=== PATIENT | female | born 1960 | race Caucasian/White ===

== ENCOUNTER 2017-12-05 08:01 | Inpatient (IN) | payer BC ==
[~2017-12-05 08:01] MED LIST: Buffered Lidocaine 0.9% SYRIN* 5 ML/SYR SYRINGE INTRADERM ONE; Dexamethasone IV* 4 MG/ML 1 ML (4 MG) IV SLOW PU ONE; Famotidine IV* 10 MG/ML 2 ML (20 mg) IV ONE; Scopolamine 1.5 mg* PATCH TRANSDERM ONE
[2017-12-05] MEDS ORDERED: Dexamethasone IV* 4 MG/ML 1 ML (4 MG) ONE (08:08)
[2017-12-05] MEDS ORDERED: Famotidine IV* 10 MG/ML 2 ML (20 mg) ONE (08:08)
[2017-12-05] MEDS ORDERED: Buffered Lidocaine 0.9% SYRIN* 5 ML/SYR SYRINGE ONE (08:09)
[2017-12-05] MEDS ORDERED: Scopolamine 1.5 mg* PATCH ONE (08:09)
[2017-12-05] MEDS ORDERED: ceFAZolin 1 GM in Dextrose (*) 1 GM/50 ML BAG IVPB ONE (08:10)
[2017-12-05] MEDS ORDERED: Clindamycin 900 MG IVPREMIX(* 900 MG/50 ML SDV IV ONE (08:10)
[2017-12-05] MEDS ORDERED: ceFAZolin 2 GM PREMIX (*) 2 GM/50 ML BAG IVPB ONE (08:10)
[2017-12-05] MEDS ORDERED: Heparin VIAL(*) 5000 UNITS/ML VIAL (FIVE THOUSAND) ONE (08:12)
[2017-12-05] MEDS ORDERED: Insulin LISPRO* 1 UNITS UNIT SUBCUT ONE ×2 (08:40→11:13)
[2017-12-05] MEDS ORDERED: Bupivacaine 0.25% SDV* 30 ML ONE (09:44)
[2017-12-05] MEDS ORDERED: Naloxone* 0.4 MG/ML 1 ML VIAL IV PRN (09:54)
[2017-12-05] MEDS ORDERED: PROCHLORPERAZINE INJ 5 MG/ML 2 ML VIAL IV PRN (09:54)
[2017-12-05] MEDS ORDERED: fentaNYL* 50 MCG/ML 2 ML VIAL (100 MCG VIAL) IV PRN (09:54)
[2017-12-05] MEDS ORDERED: DiMENhydriNATE IV* 50 MG/ML VIAL IV PUSH PRN (09:54)
[2017-12-05] MEDS ORDERED: Acetaminophen IV 1GM/100ML * 1,000 MG/100 ML VIAL IVPB ONE (09:54)
[2017-12-05] MEDS ORDERED: Lidocaine 2% PF * 5 ML VIAL ONE (09:59)
[2017-12-05] MEDS ORDERED: Propofol* 10 MG/ML 20 ML BTL IV PUSH ONE (09:59)
[2017-12-05] MEDS ORDERED: Midazolam* 1 MG/ML 2 ML VIAL (2 MG) ONE (09:59)
[2017-12-05] MEDS ORDERED: fentaNYL* 50 MCG/ML 5 ML VIAL (250 MCG VIAL) ONE (09:59)
[2017-12-05] MEDS ORDERED: Rocuronium* 10 MG/ML VIAL ONE (10:00)
[2017-12-05] MEDS ORDERED: EPHEDrine (Pressors)* 50 MG/ML VIAL ONE (10:24)
[2017-12-05] MEDS ORDERED: fentaNYL* 50 MCG/ML 2 ML VIAL (100 MCG VIAL) ONE (11:31)
[2017-12-05] MEDS ORDERED: Ondansetron INJ* 2 MG/ML VIAL ONE (11:35)
[2017-12-05] MEDS ORDERED: Glycopyrrolate IV* 0.2 MG/ML 1 ML VIAL ONE (11:37)
[2017-12-05] MEDS ORDERED: Neostigmine Methylsulfate* 2 MG/2 ML SYRINGE ONE (11:37)
[2017-12-05] MEDS ORDERED: Acetaminophen ADULT LIQ* 650 MG/20.3 ML UDC PO PRN (12:43)
[2017-12-05] MEDS ORDERED: diPHENhydraMINE IV* 50 MG/ML 1 ml VIAL (BENADRYL) SLOW PUSH PRN (12:43)
[2017-12-05] MEDS ORDERED: Dextrose 50% Syringe 50 ML* 25 GM/50 ML SYRINGE IV PUSH PRN (12:47)
--- NOTE | 2017-12-05 12:51 | PN ---
Progress Note - Progress Note Date of Service: 12/05/17 Note: Brief Operative Note: Pre-op: Morbid obesity Post-op: Same Procedure: Laparoscopic sleeve gastrectomy Surgeon: Dr. Wells Transcribing Machine Operator: JAMEL Sahni Anaesthesia: BOB EBL: Minimal Drains: None Catheter: None Fluids: LR 2,000 cc Specimen: Portion of stomach Findings: See dictated op note
[2017-12-05] MEDS ORDERED: Acetaminophen IV 1GM/100ML * 100 ML ONE (13:21)
[2017-12-05] MEDS ORDERED: Morphine INJ* 4 MG/ML 1 ML CARPUJECT ONE (13:21)
[2017-12-05] MEDS: Morphine INJ* 2 MG/ML 1 ML CARPUJECT IV PRN ×2 (13:27→13:32)
[2017-12-05] MEDS ORDERED: Morphine INJ* 2 MG/ML 1 ML SYRINGE (TWO MG - NEW SYRINGE VERSION) IV PRN (15:00)
[2017-12-05] MEDS: HYDROmorphone INJ* 2 MG/ML CARPUJECT SYRINGE IV PRN ×2 (18:11→21:13)
[2017-12-05] MEDS: Insulin LISPRO* 1 UNITS UNIT SUBCUT SCH ×2 (18:12→23:57)
[2017-12-05] MEDS: Ondansetron INJ* 2 MG/ML VIAL IV PRN (18:20)
[2017-12-05] MEDS: Famotidine IV* 10 MG/ML 2 ML (20 mg) IV SLOW PU SCH (21:13)
--- NOTE | 2017-12-06 00:09 | OP ---
CC: JOSE D; Crista Archer NP; Donato Triplett MD * DATE OF OPERATION: 12/05/17 - ROOM #351 DATE OF : 58 SURGEON: Mc Wells MD ACUTE CARE NURSE PRACTITIONER: JAMEL Edward ANESTHESIOLOGIST: Dr. Guzman. ANESTHESIA: General. PRE-OP DIAGNOSES: 1. Clinically severe obesity. 2. Type 2 diabetes. 3. Splenomegaly. 4. Hypertension. 5. Hypercholesterolemia. POST-OP DIAGNOSES: 1. Clinically severe obesity. 2. Type 2 diabetes. 3. Splenomegaly. 4. Hypertension. 5. Hypercholesterolemia. 6. Nodular liver. OPERATIVE PROCEDURE: Laparoscopic sleeve gastrectomy and Misael-cut biopsy of the liver. BLOOD LOSS: Less than 50 cc. FLUIDS: Minimal crystalloid fluid given. SPECIMENS: 1. Portion of stomach. 2. Misael-cut biopsy of left lateral lobe of the liver. DRAINS: None. COUNTS: Lap pad count and instrument count correct at the end of the procedure. DESCRIPTION OF PROCEDURE: The patient was identified in the preoperative area, consent was signed after discussion. She was taken to the operating room, placed on the operating table in supine position. Preoperative antibiotics were given. Sequential devices were placed on bilateral lower extremities. General anesthesia was induced. The patient's abdomen was prepped and draped in the standard surgical fashion and a time-out was performed. Folds of the umbilicus were elevated anteriorly and a Veress needle was inserted into the abdominal cavity, which was then allowed to insufflate to a pressure of 15 mmHg. The patient tolerated the insufflation well. Mcarthur between the xiphoid and umbilicus, a 12-mm trocar was inserted just left of midline. Laparoscope was inserted through this and there was an obvious nodular liver and enlarged spleen. The liver did extend all the way above the spleen along the left hemidiaphragm. Additional trocars were then placed in the following position, 5 mm in the right upper quadrant, and 5 mm in the left upper quadrant. Next, the patient was placed in a steep reverse Trendelenburg and a Corbin retractor was inserted through the subxiphoid incision and a liver retractor was inserted and we were able to move this nodular liver that was somewhat bulky, but pliable, anteriorly and somewhat to the right. The underside revealed the proximal portion of the stomach. Gastroesophageal fat pad was identified. This was grasped and retracted towards the right lower quadrant. We performed some blunt dissection at this site to see if we can carry on with the procedure as well we looked at the gastrosplenic ligament. This appeared that we could safely go forward with the procedure and we began by placing an additional 5-mm trocar in the left lateral region and upsizing the 5 mm on the right upper quadrant to a 12 mm. We dissected the gastroesophageal fat pad off the anterior stomach with both blunt and sharp dissection and extended this off the stomach and towards the diaphragm. A blunt dissection of this spot did not readily reveal the left roger , so we changed our visual to the pylorus. Approximately 6 cm proximal to the pylorus along the greater curvature, a retrogastric dissection was performed and the greater curvature vasculature was taken with LigaSure device. We slowly went around the area of the short gastrics, rotating the stomach anteriorly and medially as we did. We ultimately did fully rotate and dissect this both off the spleen and also off the diaphragm to allow us to see the left roger. Posterior attachments were taken with both LigaSure device and with sharp dissection and we were then able to rotate the stomach along its axis. A 60 mm purple Tri-Stapler was inserted with reinforcement strips and placed at approximately 6 cm proximal to the pylorus and extending it towards the incisura. Prior to firing this, a 40-[place] Bougie was inserted by the anesthesiologist into the distal stomach where we could visualize this. The stapler was fired and then additional 60-mm purple CIERRA staplings with reinforcement strips were taken to complete the sleeve stomach, standing close to the bougie. The last firing was 45 mm. We had dissected the fat pad off, but this draped back over on to the staple line proximally. Review of the staple line showed no aberrant kenan. Hemostasis was excellent. We had placed a gauze at the site of the hilum and spleen. There was no active bleeding and this was removed. We did place a portion of Surgicel at the site , but at the proximal portion of the staple line. The bougie was removed. Hemostasis was excellent. We saw that the staple line stayed true without corkscrewing with the exception of the last staple line at 45 mm did dip posteriorly. Next, the stomach was placed in the endoscopic retrieval bag and kept in the abdomen at this point. The liver retractor was removed. There was no bleeding at the site of the liver. We then used a Misael-cut biopsy needle through the subxiphoid incision and got a portion of liver for specimen. Hemostasis was achieved with electrocautery and additional small portion of the Surgicel was placed over the biopsy site. Next, the stomach was removed with the endoscopic retrieval bag through the right upper quadrant port site, which was then closed at the fascia layer with an 0 Vicryl suture. We irrigated the wound and the abdomen was collapsed. Trocars were removed under direct vision and all the 5 skin incisions were reapproximated with 4- 0 Monocryl and subcuticular sutures. Sterile dressing was applied. [id number]/[facility] #: [id number] MELQUIADES
[2017-12-06] MEDS: HYDROmorphone INJ* 2 MG/ML CARPUJECT SYRINGE IV PRN ×3 (01:03→10:43)
[2017-12-06] MEDS: Ondansetron INJ* 2 MG/ML VIAL IV PRN ×2 (01:03→07:39)
[2017-12-06] MEDS: Insulin LISPRO* 1 UNITS UNIT SUBCUT SCH ×3 (05:56→18:23)
[2017-12-06] MEDS: Famotidine IV* 10 MG/ML 2 ML (20 mg) IV SLOW PU SCH ×2 (07:41→20:55)
--- NOTE | 2017-12-06 08:49 | SURGPN ---
Subjective - Introduction -: Admitted on: 12/05/2017 Patient's surgical date: 12/05/2017 Procedure completed: Laparoscopic sleeve gastrectomy - Medications -: Active Medications Generic Name Dose Route Start Last Admin Trade Name Freq PRN Reason Stop Dose Admin Acetaminophen 650 mg 12/05/17 12:43 Tylenol Adult Liq* PO Q6H PRN Temp > 101 F Or Mild Pain Hydrocodone Bitart/Acetaminophen 15 ml 12/05/17 12:43 Nortab 7.5/325 Liq* PO Q6H PRN PAIN Dextrose 12.5 gm 12/05/17 12:47 D50w Syringe 50 Ml* IV PUSH .FOR FS < 60 - SS PRN FS < 60 Diphenhydramine HCl 25 mg 12/05/17 12:43 Benadryl Iv* SLOW PUSH Q6H PRN ITCHING Famotidine 20 mg 12/05/17 21:00 12/06/17 07:41 Pepcid Iv* IV SLOW PU 20 mg BID STAN Administration Hydromorphone HCl 0.5 mg 12/05/17 12:43 12/06/17 04:30 Dilaudid Inj* IV 0.5 mg Q3H PRN Administration PAIN Potassium Chloride/Dextrose 1,000 mls @ 125 mls/hr 12/06/17 12:45 D5w 1/2 Ns Kcl 20 Meq 1000 Ml* IV PER RATE STAN Lactated Ringer's 1,000 mls @ 150 mls/hr 12/05/17 13:00 12/06/17 03:11 Lactated Ringers 1000 Ml Bag* IV 12/06/17 12:45 150 mls/hr PER RATE STAN Administration Insulin Human Lispro 0 units 12/05/17 18:00 12/06/17 05:56 Humalog* SUBCUT 6 units Q6HR STAN Administration Protocol Ondansetron HCl 4 mg 12/05/17 12:43 12/06/17 07:39 Zofran Inj* IV 4 mg Q6H PRN Administration NAUSEA/VOMITING Pharmacy Profile Note 1 note 12/08/17 06:00 Scopolamine Patch Remove* PATCH OFF 12/08/17 06:01 ONCE ONE - Comments Comments: Reports doing better this AM. Patient was seen and examined at bedside. Had some nausea last night, but no vomiting, fever or chills. Ambulatory this AM. Minimal incisional pain, tolerated with pain meds. Blood sugar has been running in 200s. Objective - Objective -: Awake and alert, used bathroom prior to sitting on her bed, appears comfortable - Intake and Output -: Intake & Output 12/04/17 12/05/17 12/06/17 12/07/17 06:59 06:59 06:59 06:59 Intake Total 5159 Output Total 925 400 Balance 4234 -400 Weight 205 lb 1.6 oz Intake: IV Fluids 5159 LR 5159 Oral 0 Output: Urine 825 400 Estimated Blood Loss 100 Other: Estimated Void Small # Voids 1 Surgical Physical Exam - Comments -: Vitals stable, Tmax 98.4 Lungs CTA bilat. Heart RRR, no murmurs Abdomen soft, round, NT and ND. Incisions clean and dry. UGI pending Assessment and Plan - Assessment -: POD#1, s/p laparoscopic sleeve gastrectomy, stable - Plan Additional Comments: Ambulate as tolerated Await upper GI results to start her bariatric clears Continue sliding scale for glycemic control GI and DVT prophylaxis, Heparin on hold due to thrombocytopenia pre-op, ambulate and SSD for now.
--- NOTE | 2017-12-06 10:09 | RAD ---
INDICATION: Gastric sleeve surgery COMPARISON: None FINDINGS: 30 seconds of fluoroscopy was utilized for a limited upper GI examination: Bariatric (gastric sleeve) surgery. The patient ingested a small amount of Gastrografin and cine loop and spot imaging was performed. There is prompt filling of the gastric remnant without evidence of extravasation or obstruction. There is normal postoperative appearance. CPT II Codes: 6045F (fluoro time doc)
[2017-12-06] MEDS: D5W 1/2 NS KCl 20 Meq 1000 ML* 1,000 ML IV SCH ×2 (10:59→18:27)
[2017-12-06] MEDS: HYDROcodone/ACET. 7.5/325 LIQ* 15 ML UDC PO PRN ×2 (14:35→20:54)
[2017-12-07] MEDS: Insulin LISPRO* 1 UNITS UNIT SUBCUT SCH ×2 (00:15→06:06)
[2017-12-07] MEDS: D5W 1/2 NS KCl 20 Meq 1000 ML* 1,000 ML IV SCH (02:22)
[2017-12-07] MEDS: HYDROcodone/ACET. 7.5/325 LIQ* 15 ML UDC PO PRN (06:05)
[2017-12-07] MEDS: Famotidine IV* 10 MG/ML 2 ML (20 mg) IV SLOW PU SCH (09:23)
[2017-12-07 09:28] VITALS: BP 138/61
--- NOTE | 2017-12-07 10:16 | PN ---
Progress Note - Progress Note Date of Service: 12/07/17 SOAP: Subjective:POD#2 s/p lap sleeve gastrectomy;john clears;wants to go home [] Objective:afeb;VSS;lungs:clear, heart:RRR,Abd:+bs,bloated, soft;all incisions clean,dry and intact with steristrips,no erythema;Ext:nontender,no edema [] Assessment:doing well 2 days s/p lap sleeve gastrectomy [] Plan:discharge home today,instructions revieweed,questions answered;has followup appt 12/10/17 at [facility] []
--- NOTE | 2017-12-07 21:46 | DS ---
CC: [facility] * DISCHARGE SUMMARY: DATE OF ADMISSION: 12/05/17 DATE OF DISCHARGE: 09/06/18 ATTENDING SURGEON: Dr. Mc Wells.* (DICTATED BY JENNIFER AGGARWAL NP) HOSPITAL COURSE: Please refer to admission history and physical for admission details. The patient was taken to the operating room on 12/05/17 and underwent laparoscopic sleeve gastrectomy by Dr. Wells. She had an uneventful postoperative course and required minimal pain medication and was able to meet the criteria for oral intake of bariatric clear liquids. She was ambulating in the halls and using her Inspiron. She was seen earlier this morning by myself and she met criteria for discharge. Dr. Wells was updated and omeprazole 40 mg p.o. daily was added to her list of medications. PHYSICAL EXAMINATION: General: Well appearing, in no acute distress. Vital signs are stable. She is afebrile. O2 saturation on room air 98%. Lungs: Breath sounds bilaterally clear and equal. Heart: Regular rate and rhythm. No murmurs or rubs appreciated. Abdomen: Active bowel sounds, bloated and soft. Laparoscopic port sites are intact with Steri-Strips, which are clean and dry. There is no surrounding erythema. There are active bowel sounds. Extremities are warm, nontender calves, no edema. IMPRESSION: Status post laparoscopic sleeve gastrectomy, doing extremely well. PLAN: Discharge home today; instructions were reviewed with the patient. She has a followup appointment with Dr. Wells on 12/10/17 at [facility]. All of her medications were reviewed and she will monitor her fingerstick glucose at home as usual and call if her blood sugars persistently greater than 200. She has a prescription for Lortab Elixir at home as needed and she may use over-the- counter Tylenol for mild pain. JENNIFER AGGARWAL NP [id number]/[facility] #: [id number] MELQUIADES
[2017-12-08] MEDS ORDERED: Scopolamine PATCH Remove* 1 NOTE MISC PATCH OFF ONE (06:00)
== END 2017-12-07 11:35 | disposition home or self-care (01) | DRG 403 ==
LOC: AA 08:01 → SSU 13:54
PROVIDERS: ADMIT Surgery; ATTEND Surgery
PROC: 0FB24ZX Excision of Left Lobe Liver, Percutaneous Endoscopic Approach, Diagnostic (ICD-10-PCS; 2017-12-05)
PROC: 0DB64Z3 Excision of Stomach, Percutaneous Endoscopic Approach, Vertical (ICD-10-PCS; principal; 2017-12-05 09:30)
DX: E66.01 Morbid (severe) obesity due to excess calories (principal); D69.6 Thrombocytopenia, unspecified; K76.89 Other specified diseases of liver; R16.1 Splenomegaly, not elsewhere classified; I10 Essential (primary) hypertension; E11.65 Type 2 diabetes mellitus with hyperglycemia; E78.00 Pure hypercholesterolemia, unspecified; R11.0 Nausea; Z90.49 Acquired absence of other specified parts of digestive tract; Z87.442 Personal history of urinary calculi; Z83.3 Family history of diabetes mellitus; Z82.49 Family history of ischemic heart disease and other diseases of the circulatory system; Z84.89 Family history of other specified conditions; Z68.36 Body mass index [BMI] 36.0-36.9, adult
CPT/HCPCS: 74246; 88307; 88313; A9270-GY; J0690; J1100; J1170; J1644; J2250; J2270; J2405; J2704; J3010